=== PATIENT | male | born 1985 | race Hispanic/Latino ===

== ENCOUNTER 2019-04-23 14:42 | Emergency (ER) | payer SELFPAY ==
--- NOTE | 2019-04-23 15:33 | ER ---
Nurse's Notes [facility] Name: Shireen Enriquez Age: 33 yrs Sex: Male : 1985 Arrival Date: 04/23/2019 Time: 14:44 Bed 12 Private MD: Diagnosis: Rash and other nonspecific skin eruption Presentation: 04/23 14:50 Presenting complaint: Itchy rash on arms and back x 1-2 weeks. Transition of care: hb patient was not received from another setting of care. Onset of symptoms is unknown. Risk Assessment: Do you want to hurt yourself or someone else? Patient reports no desire to harm self or others. Initial Sepsis Screen: Does the patient meet any 2 criteria? No. Patient's initial sepsis screen is negative. Does the patient have a suspected source of infection? No. Patient's initial sepsis screen is negative. Care prior to arrival: None. 14:50 Method Of Arrival: Ambulatory 14:50 Acuity: KEKE 4 hb Historical: - Allergies: 14:51 No Known Allergies; hb - Home Meds: 14:51 None [Active]; hb - PMHx: 14:51 None; hb - PSHx: 14:51 None; hb - Immunization history:: Adult Immunizations up to date. - Social history:: Smoking status: Patient/guardian denies using tobacco. - Ebola Screening: : No symptoms or risks identified at this time. Screenin:00 Abuse screen: Denies threats or abuse. Denies injuries from another. Nutritional ss screening: No deficits noted. Tuberculosis screening: Never had TB. Fall Risk None identified. Assessment: 15:00 General: Appears in no apparent distress. comfortable, Behavior is calm, cooperative. ss Pain: Denies pain. Neuro: Level of Consciousness is awake, alert, obeys commands, Oriented to person, place, time, situation, Denies dizziness, headache. Cardiovascular: Reports itchy rash to bilateral upper extremities and back Capillary refill < 3 seconds is brisk in bilateral fingers. Respiratory: Airway is patent Respiratory effort is even, unlabored, Respiratory pattern is regular, symmetrical. GI: No signs and/or symptoms were reported involving the gastrointestinal system. EENT: Oral mucosa is moist. Derm: Skin is intact, is healthy with good turgor, Skin is pink, warm \T\ dry. normal. Musculoskeletal: Circulation, motion, and sensation intact. Range of motion: intact in all extremities, Swelling absent. Vital Signs: 14:51 BP 137 / 76; Pulse 82; Resp 16; Temp 97.4; Pulse Ox 100% on R/A; Weight 107.95 kg; hb Height 5 ft. 4 in. (162.56 cm); Pain 0/10; 14:51 Body Mass Index 40.85 (107.95 kg, 162.56 cm) hb ED Course: 14:44 Patient arrived in ED. rg4 14:51 Triage completed. 14:51 Arm band placed on. 14:52 Blake Florian PA is PHCP. alexandro 14:52 Timur Rodriguez MD is Attending Physician. [facility] 15:00 Patient has correct armband on for positive identification. Bed in low position. Call ss light in reach. 15:42 Bell De León, ELBERT is Primary Nurse. 15:42 No provider procedures requiring assistance completed. Patient did not have IV access ss during this emergency room visit. Administered Medications: No medications were administered Outcome: 15:32 Discharge ordered by . [facility] 15:42 Discharged to home ambulatory. 15:42 Condition: good 15:42 Discharge instructions given to patient, family, Instructed on discharge instructions, follow up and referral plans. medication usage, Demonstrated understanding of instructions, follow-up care, medications, Prescriptions given X 3. 15:43 Patient left the ED. ss Signatures: Blake Florian PA PA jmm Smirch, Shelby, RN RN Katherine Chavez RN RN Cherie Abdul rg4
--- NOTE | 2019-04-23 15:33 | EDPHYS ---
Physician Documentation [facility] Name: Shireen Enriquez Age: 33 yrs Sex: Male : 1985 Arrival Date: 04/23/2019 Time: 14:44 Bed 12 Private MD: ED Physician Timur Rodriguez HPI: 04/23 15:15 This 33 yrs old Male presents to ER via Ambulatory with complaints of Rash. jmm 15:15 The patient's rash thought to be caused by an unknown cause. Onset: The jmm symptoms/episode began/occurred gradually. Associated signs and symptoms: Pertinent positives: fever, Pertinent negatives: swelling of lips, swelling of throat, swelling of tongue. This is a 33 year old male with no chronic medical conditions that presents to the ED with complaints of diffuse rash which has been ongoing for weeks. Denies vomiting, fever, shortness of breath. . Historical: - Allergies: 14:51 No Known Allergies; hb - Home Meds: 14:51 None [Active]; hb - PMHx: 14:51 None; hb - PSHx: 14:51 None; hb - Immunization history:: Adult Immunizations up to date. - Social history:: Smoking status: Patient/guardian denies using tobacco. - Ebola Screening: : No symptoms or risks identified at this time. ROS: 15:15 Constitutional: Negative for fever, chills, and weight loss, Cardiovascular: Negative jmm for chest pain, palpitations, and edema, Respiratory: Negative for shortness of breath, cough, wheezing, and pleuritic chest pain. 15:15 Skin: Positive for rash. 15:15 All other systems are negative. Exam: 15:15 Constitutional: This is a well developed, well nourished patient who is awake, alert, jmm and in no acute distress. Head/Face: atraumatic. Eyes: EOMI, no conjunctival erythema appreciated ENT: Moist Mucus Membranes Neck: Trachea midline, Supple Chest/axilla: Normal chest wall appearance and motion. Cardiovascular: Regular rate and rhythm. No edema appreciated Respiratory: Normal respirations, no respiratory distress appreciated Abdomen/GI: Non distended, soft Back: Normal ROM Skin: General appearance color normal MS/ Extremity: Moves all extremities, no obvious deformities appreciated, no edema noted to the lower extremities Neuro: Awake and alert, normal gait Psych: Behavior is normal, Mood is normal, Patient is cooperative and pleasant Vital Signs: 14:51 BP 137 / 76; Pulse 82; Resp 16; Temp 97.4; Pulse Ox 100% on R/A; Weight 107.95 kg; hb Height 5 ft. 4 in. (162.56 cm); Pain 0/10; 14:51 Body Mass Index 40.85 (107.95 kg, 162.56 cm) hb MDM: 14:[address] [facility] 15:31 Data reviewed: vital signs, nurses notes. Counseling: I had a detailed discussion with alexandro the patient and/or guardian regarding: the historical points, exam findings, and any diagnostic results supporting the discharge/admit diagnosis, the need for outpatient follow up, to return to the emergency department if symptoms worsen or persist or if there are any questions or concerns that arise at home. ED course: Patient is alert and non toxic in appearance in the ED. Patient advised to return to the ED if symptoms worsen. patient understood and agrees with the plan of care. . Administered Medications: No medications were administered Disposition: 18:47 Co-signature as Attending Physician, Timur Rodriguez MD I agree with the assessment and [facility] plan of care. Disposition: 04/23/19 15:32 Discharged to Home. Impression: Rash and other nonspecific skin eruption. - Condition is Stable. - Discharge Instructions: Rash. - Prescriptions for Elimite 5 % Topical Cream - apply 1 application by TOPICAL route one time Wash after 12 hours.; 60 gram. Hydroxyzine HCl 25 mg Oral Tablet - take 1 tablet by ORAL route every 6 hours As needed; 30 tablet. Prednisone 20 mg Oral Tablet - take 3 tablet by ORAL route once daily for 5 days; 15 tablet. - Medication Reconciliation Form, Thank You Letter, Antibiotic Education, Prescription Opioid Use form. - Work release form (04/23/19 15:47). bd - Follow up: Private Physician; When: 2 - 3 days; Reason: Recheck today's complaints, Continuance of care, Re-evaluation by your physician. Signatures: Timur Rodriguez MD MD cha Mickail, Joel, PA PA jmm Smirch, Shelby, RN RN Katherine Chavez RN RN Jacy De Jesus Corrections: (The following items were deleted from the chart) 15:43 15:32 04/23/2019 15:32 Discharged to Home. Impression: Rash and other nonspecific skin ss eruption. Condition is Stable. Forms are Medication Reconciliation Form, Thank You Letter, Antibiotic Education, Prescription Opioid Use. Follow up: Private Physician; When: 2 - 3 days; Reason: Recheck today's complaints, Continuance of care, Re-evaluation by your physician. alexandro
[2019-04-23 16:40] VITALS: BP 137/76; TEMP 97.4; O2SAT 100
== END 2019-04-23 15:43 | disposition home or self-care (01) ==
LOC: ER 14:42
DX: R21 Rash and other nonspecific skin eruption (principal)
CPT/HCPCS: 99282